=== PATIENT | male | born 1970 | race Caucasian/White ===

== ENCOUNTER 2016-11-06 11:08 | Emergency (ER) | payer OTHER ==
[~2016-11-06] VITALS: Ht 167.6 cm; Wt 99.8 kg
[2016-11-06 11:20] VITALS: BP 136/63
[2016-11-06] MEDS ORDERED: DIPHTH,PERTUSS(ACELL),TET TOX 0.5 ML DISP.SYRIN. VAX IM ONE (11:30)
[2016-11-06] MEDS ORDERED: LIDOCAINE 1% / SOD BICARB 8.4% 20 ML VIAL. IJ ONE (11:30)
--- NOTE | 2016-11-06 11:37 | PHYS DOC ---
Past Medical History Past Medical History: Other Additional Past Medical Histor: ULCERITIVE COLITIS/CHROHNS Past Surgical History: No Surgical History Alcohol Use: Occasionally Drug Use: None Adult General Chief Complaint Chief Complaint: LACERATION/AVULSION HPI HPI Patient is a 45 year old male presents to the emergency department stating that they were doing remodeling in the bathroom. Patient states that he went to pull stool Within the stool broke and he developed lacerations to his right hand , finger, he also has a flap laceration on his left hand. Patient is unsure when his last tetanus immunization occurred. Bleeding is currently controlled at this time. Patient has full range of motion of all of his fingers on both hands. Review of Systems Review of Systems Constitutional: Denies fever or chills [] Eyes: Denies change in visual acuity, redness, or eye pain [] HENT: Denies nasal congestion or sore throat [] Respiratory: Denies cough or shortness of breath [] Cardiovascular: No additional information not addressed in HPI [] GI: Denies abdominal pain, nausea, vomiting, bloody stools or diarrhea [] : Denies dysuria or hematuria [] Musculoskeletal: Denies back pain or joint pain [] Integument: Denies rash or skin lesions. Complaint of lacerations to bilateral hands. Neurologic: Denies headache, focal weakness or sensory changes [] Endocrine: Denies polyuria or polydipsia [] Current Medications Current Medications Current Medications Medications (Trade) Dose Ordered Sig/Anastasia Start Time Stop Time Status Last Admin Dose Admin Diphtheria/ Tetanus/Acell Pertussis (Boostrix) 0.5 ml ONCE ONCE 11/06/16 11:30 11/06/16 11:31 DC Lidocaine/Sodium Bicarbonate (Buffered Lidocaine 1%) 20 ml 1X ONCE 11/06/16 11:30 11/06/16 11:31 DC 11/06/16 11:29 20 ML Allergies Allergies Allergies Coded Allergies Type Severity Reaction Last Updated Verified No Known Drug Allergies 11/06/16 No Physical Exam Physical Exam Constitutional: Well developed, well nourished, no acute distress, non-toxic appearance. [] HENT: Normocephalic, atraumatic, bilateral external ears normal, oropharynx moist, no oral exudates, nose normal. [] Eyes: PERRLA, EOMI, conjunctiva normal, no discharge. [] Neck: Normal range of motion, no tenderness, supple, no stridor. [] Cardiovascular:Heart rate regular rhythm, no murmur [] Lungs & Thorax: Bilateral breath sounds clear to auscultation [] Skin: Warm, dry, no erythema, no rash. Patient with a 2.5 cm laceration noted to his right fourth finger. Patient with a flap laceration noted to the left fifth finger. Bleeding on both are currently controlled at this time. Patient has full range of motion of all of his fingers. Back: No tenderness Extremities: No tenderness, no cyanosis, no clubbing, ROM intact, no edema. [] Neurologic: Alert and oriented X 3, normal motor function, normal sensory function, no focal deficits noted. [] Psychologic: Affect normal, judgement normal, mood normal. [] Current Patient Data Vital Signs Vital Signs Date Time Temp Pulse Resp B/P (MAP) Pulse Ox O2 Delivery O2 Flow Rate FiO2 11/06/16 11:20 98.7 62 16 96 Room Air 98.7 EKG EKG [] Radiology/Procedures Radiology/Procedures [] Course & Med Decision Making Course & Med Decision Making Pertinent Labs and Imaging studies reviewed. (See chart for details) Flap laceration was cleaned with Betadine and normal saline. Dermabond was placed over the site. Laceration on the fourth right finger was injected with lidocaine 1% buffered site was cleaned with Betadine irrigated with 50 mL normal saline. Patient was instructed to keep the areas clean and dry. Recommended cleaning the site twice a day with soap and water and applying antibiotic ointment to the area. Signs and symptoms of infection such as redness warmth tenderness or any yellow/greenish drainage that comes from the site he would need to follow-up the primary care physician immediately. Patient was instructed to use Tylenol or ibuprofen for pain and discomfort ice packs on 20 minutes off 20 minutes several times a day. Patient was instructed to have the sutures removed in the next 7-10 days. Patient agrees with discharge instructions treatment regimens and follow-up recommendations. Both patient and family member a agree with the treatment regimen at this time. [] Dragon Disclaimer Dragon Disclaimer This electronic medical record was generated, in whole or in part, using a voice recognition dictation system. Departure Departure Impression: Primary Impression: Laceration Disposition: 01 HOME, SELF-CARE Condition: STABLE Patient Instructions: Laceration Care, Adult, [id number], Sutured Wound Care , [id number], Tetanus and Diphtheria Vaccine Additional Instructions: Keep the area clean and dry. Clean the sutured area with soap and water twice a day and apply antibiotic ointment to the site. Watch for signs and symptoms of infection: Redness, warmth, tenderness or any yellow/greenish drainage of a come from the site if this should occur follow-up to primary care physician immediately. Tylenol or ibuprofen for pain and discomfort. Ice packs on 20 minutes off 20 minutes several times a day. Sutures out in the next 7-10 days. You may follow-up through primary care physician for this to occur you may return back to emergency department. Return back to emergency prior signs symptoms of become worse. Laceration/Wound Repair Laceration/Wound Repair : Wound Location: upper extremity Wound's Depth, Shape: superficial Wound Length (cm): 2 Wound Explored: clean Irrigated w/ Saline (ccs): 50 Betadine Prep?: Yes Anesthesia: 1% Lidocaine Volume Anesthetic (ccs): 3 Wound Debrided: minimal Wound Repaired With: sutures Suture Size/Type: 4:0 Number of Sutures: 8 ESTEFANÍA SOFIA COMMUNITY AFFAIRS MANAGER Nov 06, 2016 11:37
== END 2016-11-06 13:00 | disposition home or self-care (01) ==
LOC: ER 11:08
DX: S61.411A Laceration without foreign body of right hand, initial encounter (principal); W27.8XXA Contact with other nonpowered hand tool, initial encounter; Y93.89 Activity, other specified; Y99.8 Other external cause status; Y92.89 Other specified places as the place of occurrence of the external cause
CPT/HCPCS: 12001; 90471; 90715; 99283-25

== ENCOUNTER 2017-01-25 19:28 | Emergency (ER) | payer OTHER ==
[~2017-01-25] VITALS: Ht 167.6 cm; Wt 104.3 kg
[2017-01-25 19:45] VITALS: BP 125/61
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
[2017-01-25] MEDS ORDERED: IBUPROFEN 800 MG TABLET. PO ONE (20:30)
[2017-01-25] MEDS ORDERED: CYCLOBENZAPRINE 10 MG TABLET. PO ONE (20:30)
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
[2017-01-25] MEDS ORDERED: ACET-704 PO (21:35)
[2017-01-25] MEDS ORDERED: CYCL10TA2 PO (21:35)
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
== END 2017-01-25 21:49 | disposition home or self-care (01) ==
LOC: ER 19:28
DX: M54.6 Pain in thoracic spine (principal); M54.5 Low back pain; V87.7XXA Person injured in collision between other specified motor vehicles (traffic), initial encounter; Y93.89 Activity, other specified; Y99.8 Other external cause status; Y92.89 Other specified places as the place of occurrence of the external cause
CPT/HCPCS: 71111; 72128; 72131; 99284-25